=== PATIENT | male | born 1970 | race Caucasian/White ===

== ENCOUNTER 2019-01-23 15:08 | Inpatient (IN) | payer MEDICAID ==
[~2019-01-23] VITALS: Ht 177.8 cm; Wt 70.6 kg
[2019-01-23] MEDS ORDERED: heparin 25,000 UNIT/250ml bag 250 ML IV SCH ×2 (15:14→15:20)
[2019-01-23 15:28] LABS: BASOPHILS # (AUTO) 0.1 X10'3 (0-0.2); BASOPHILS % (AUTO) 0.8 % (0-1); EOSINOPHILS # (AUTO) 0.1 X10'3 (0-0.9); EOSINOPHILS % (AUTO) 0.4 % (0-6); HEMATOCRIT 46.6 % (42.0-52.0); LYMPHOCYTES # (AUTO) 1.8 X10'3 (1.1-4.8); LYMPHOCYTES % (AUTO) 13.3 % (21-51); MEAN CORPUSCULAR HEMOGLOBIN 32.5 PG (27.0-31.0); MEAN CORPUSCULAR HGB CONC 34.3 g/dL (33.0-36.5); MEAN CORPUSCULAR VOLUME 94.7 FL (78-98); MEAN PLATELET VOLUME 7.5 FL (7.4-10.4); MONOCYTES # (AUTO) 0.8 X10'3 (0-0.9); MONOCYTES % (AUTO) 5.9 % (2-12); NEUTROPHILS # (AUTO) 10.5 X10'3 (1.8-7.7); NEUTROPHILS % (AUTO) 79.6 % (42-75); PLATELET COUNT 242 X10'3 (140-440); RED BLOOD COUNT 4.92 X10'6 (4.70-6.10); RED CELL DISTRIBUTION WIDTH 13.6 % (11.5-14.5); WHITE BLOOD COUNT 13.2 X10'3 (4.5-11.0)
[2019-01-23] MEDS ORDERED: acetaminophen 325mg tablet PO PRN ×2 (15:30)
[2019-01-23] MEDS ORDERED: magnesium 4gm in 100ml NS 100 ML IV PRN (15:30)
[2019-01-23] MEDS ORDERED: magnesium hydroxide 30ml (MOM) UD suspension PO PRN (15:30)
[2019-01-23] MEDS ORDERED: potassium Cl 20 mEq SR tablet PO PRN ×2 (15:30)
[2019-01-23] MEDS ORDERED: magnesium Cl slow-release 64mg tablet PO PRN (15:30)
[2019-01-23] MEDS ORDERED: morphine 4 MG/ML inj SYRINge IV PRN ×3 (15:30→19:30)
[2019-01-23] MEDS: K, MAG and/or Phos replacement - Verify level? MC SCH (15:30)
[2019-01-23] MEDS ORDERED: magnesium 2GM in 50ml NS 50 ML IV PRN (15:30)
[2019-01-23] MEDS ORDERED: ondansetron/PF 4mg/2ml inj IV PRN (15:30)
[2019-01-23] MEDS ORDERED: GABA600T13 PO (15:35)
[2019-01-23] MEDS ORDERED: METH500T6 PO (15:35)
[2019-01-23] MEDS ORDERED: CELE-193 PO (15:35)
[2019-01-23 15:42] LABS: ALANINE AMINOTRANSFERASE 24 U/L (12-78); ALBUMIN 3.7 G/DL (3.4-5.0); ALBUMIN/GLOBULIN RATIO 1.2 (1.1-1.5); ALKALINE PHOSPHATASE 77 IU/L (46-116); ANION GAP 10 (8-16); ASPARTATE AMINO TRANSFERASE 135 U/L (10-37); BILIRUBIN,TOTAL 0.3 MG/DL (0.1-1.0); BLOOD UREA NITROGEN 19 MG/DL (7-18); CALCIUM 8.9 MG/DL (8.5-10.1); CHLORIDE 103 MMOL/L (99-107); CREATININE 1.12 MG/DL (0.60-1.10); GLUCOSE 115 MG/DL (70-104); POTASSIUM 3.6 MMOL/L (3.5-5.1); SODIUM 139 MMOL/L (135-145); TOTAL CARBON DIOXIDE 25.7 MMOL/L (24-32); TOTAL PROTEIN 6.9 G/DL (6.4-8.2); eGFR 69 ML/MIN
[2019-01-23] MEDS ORDERED: heparin 10,000 units/1 ML INJ IV PRN (15:50)
[2019-01-23 15:55] LABS: PARTIAL THROMBOPLASTIN TIME 100 SECONDS (22-32)
[2019-01-23] MEDS: pantoprazole 40 MG vial IV SCH (15:55)
[2019-01-23] MEDS: morphine 2 MG/ML inj. syringe IV PRN (15:56)
[2019-01-23] MEDS ORDERED: nitroGLYCERIN-Tridil 50MG/D5W 250 ML IV PRN ×2 (16:20→16:25)
[2019-01-23] MEDS: gabapentin 300mg capsule PO SCH (16:30)
[2019-01-23] MEDS ORDERED: diphenhydrAMINE 50 mg/ml inj IV ONE (16:40)
[2019-01-23] MEDS ORDERED: LIDOcaine 1% (10mg/ml)w/preservative injection 20ml MDV ONE (17:04)
[2019-01-23] MEDS ORDERED: midazolam 2 mg/2 ml injection ONE (17:04)
[2019-01-23] MEDS ORDERED: iohexol 350MG/ML 100ml bottle IV ONE ×2 (17:04→18:04)
[2019-01-23] MEDS ORDERED: iohexol 350 MG/ML 50ML vial IV ONE (17:04)
[2019-01-23] MEDS ORDERED: fentaNYL/PF 50MCG/1 ML 2ML syringe ONE (17:04)
[2019-01-23] MEDS ORDERED: tirofiban 5mg in NS 100mL 100 ML IV ONE (17:49)
[2019-01-23] MEDS ORDERED: heparin 1,000unit/ml 10ml vial 10 ML ONE (18:01)
[2019-01-23] MEDS ORDERED: clopidogrel 300mg tablet ONE (18:48)
[2019-01-23 19:00] VITALS: BP 118/65
--- NOTE | 2019-01-23 19:00 | NUR ---
Received patient in room CICU 2009 from research laboratory specialist. I have received report from ASH Aguayo and had the opportunity to ask questions and assume patient care.
[2019-01-23] MEDS ORDERED: normal saline 1000ml 1,000 ML IV SCH (19:20)
[2019-01-23] MEDS ORDERED: OXAZEpam 15mg capsule PO PRN (19:30)
[2019-01-23] MEDS ORDERED: morphine 10mg/ml inj. IV PRN (19:30)
[2019-01-23] MEDS ORDERED: proCHLORperazine 10 MG/2 ml inj IV PRN (19:30)
[2019-01-23 20:00] VITALS: BP 119/72
[2019-01-23] MEDS ORDERED: carVEDilol 3.125mg tablet PO SCH (20:00)
[2019-01-23] MEDS: docusate sod 100mg capsule PO SCH (20:16)
[2019-01-23] MEDS: cyclobenzaprine 10mg tablet PO SCH (20:16)
[2019-01-23] MEDS: tirofiban 5mg in NS 100mL 100 ML IV SCH (20:20)
[2019-01-23] MEDS ORDERED: atropine 0.1mg/ml 10ml syringe ONE (20:43)
--- NOTE | 2019-01-23 20:45 | NUR ---
March, OBJECTIVE C DEVELOPER notified of patient's low HR, dropping as low as 36. Patient is asymptomatic, blood pressure is maintaining, and rhythm is containing p waves. OBJECTIVE C DEVELOPER did not give new orders but suggested that the locomotive switch operator be updated on the patient's condition. Will notify the locomotive switch operator and continue monitoring patient.
--- NOTE | 2019-01-23 20:55 | NUR ---
MD Alfredo notified of patient's low heart rate, dropping as low as 32. Patient is asymptomatic, blood pressure is maintaining and rhythm still contains p waves. No new orders at this time, MD desires that we continue to monitor at this time. Will notify MD if any changes in patient's response to low HR.
[2019-01-23 21:00] VITALS: BP 130/77
[2019-01-23 22:00] VITALS: BP 130/72
[2019-01-23 23:00] VITALS: BP 110/64
[2019-01-24] VITALS (24 sets, daily range): BP systolic 101–133; BP diastolic 48–85
[2019-01-24] MEDS: tirofiban 5mg in NS 100mL 100 ML IV SCH (03:49)
[2019-01-24 04:49] LABS: BASOPHILS # (AUTO) 0.1 X10'3 (0-0.2); BASOPHILS % (AUTO) 0.6 % (0-1); EOSINOPHILS # (AUTO) 0.1 X10'3 (0-0.9); EOSINOPHILS % (AUTO) 0.7 % (0-6); HEMATOCRIT 41.5 % (42.0-52.0); HEMOGLOBIN 14.1 g/dl (14.0-17.9); LYMPHOCYTES # (AUTO) 2.1 X10'3 (1.1-4.8); LYMPHOCYTES % (AUTO) 22.4 % (21-51); MEAN CORPUSCULAR HEMOGLOBIN 32.9 PG (27.0-31.0); MEAN CORPUSCULAR VOLUME 96.7 FL (78-98); MEAN PLATELET VOLUME 7.9 FL (7.4-10.4); MONOCYTES # (AUTO) 0.9 X10'3 (0-0.9); MONOCYTES % (AUTO) 9.9 % (2-12); NEUTROPHILS # (AUTO) 6.3 X10'3 (1.8-7.7); NEUTROPHILS % (AUTO) 66.4 % (42-75); PLATELET COUNT 205 X10'3 (140-440); RED CELL DISTRIBUTION WIDTH 13.5 % (11.5-14.5); WHITE BLOOD COUNT 9.5 X10'3 (4.5-11.0)
[2019-01-24 05:01] LABS: PARTIAL THROMBOPLASTIN TIME 29 SECONDS (22-32)
[2019-01-24 05:33] LABS: ALANINE AMINOTRANSFERASE 51 U/L (12-78); ALBUMIN 3.1 G/DL (3.4-5.0); ALBUMIN/GLOBULIN RATIO 1.1 (1.1-1.5); ALKALINE PHOSPHATASE 65 IU/L (46-116); ANION GAP 10 (8-16); ASPARTATE AMINO TRANSFERASE 358 U/L (10-37); BILIRUBIN,TOTAL 0.4 MG/DL (0.1-1.0); BLOOD UREA NITROGEN 15 MG/DL (7-18); BUN/CREATININE RATIO 14.7 (5.4-32.0); CALCIUM 8.5 MG/DL (8.5-10.1); CHLORIDE 106 MMOL/L (99-107); CREATININE 1.02 MG/DL (0.60-1.10); GLUCOSE 96 MG/DL (70-104); MAGNESIUM 1.9 MG/DL (1.5-2.4); POTASSIUM 3.9 MMOL/L (3.5-5.1); SODIUM 138 MMOL/L (135-145); TOTAL CARBON DIOXIDE 21.9 MMOL/L (24-32); TOTAL PROTEIN 5.9 G/DL (6.4-8.2); eGFR 77 ML/MIN
--- NOTE | 2019-01-24 06:27 | NUR ---
Problems reprioritized. Patient report given, questions answered & plan of care reviewed with ASH Bull.
[2019-01-24] MEDS: cyclobenzaprine 10mg tablet PO SCH ×3 (07:46→20:31)
[2019-01-24] MEDS: pantoprazole 40 MG vial IV SCH (07:46)
[2019-01-24] MEDS: gabapentin 300mg capsule PO SCH ×3 (07:46→20:31)
[2019-01-24] MEDS: aspirin 81mg tab.chew PO SCH (07:46)
[2019-01-24] MEDS: docusate sod 100mg capsule PO SCH ×2 (07:46→20:31)
[2019-01-24] MEDS: morphine 2 MG/ML inj. syringe IV PRN ×2 (07:47→13:04)
[2019-01-24] MEDS: atorvastatin 10mg tablet PO SCH (07:47)
[2019-01-24] MEDS: lisinopril 2.5mg tablet PO SCH (07:47)
[2019-01-24] MEDS: K, MAG and/or Phos replacement - Verify level? MC SCH (08:22)
--- NOTE | 2019-01-24 12:41 | NUR ---
Staff Reporter RN at bedside to pull sheath
--- NOTE | 2019-01-24 18:00 | NUR ---
Patient in room CICU 2009. I have received report from Ml ALEMAN and had the opportunity to ask questions and assume patient care.
[2019-01-24] MEDS ORDERED: clopidogrel 75mg tablet PO ONE (22:10)
[2019-01-25] VITALS (17 sets, daily range): BP systolic 72–125; BP diastolic 42–86
[2019-01-25 05:08] LABS: BASOPHILS % (AUTO) 0.4 % (0-1); EOSINOPHILS # (AUTO) 0.1 X10'3 (0-0.9); HEMATOCRIT 47.5 % (42.0-52.0); HEMOGLOBIN 16.3 g/dl (14.0-17.9); LYMPHOCYTES # (AUTO) 2.5 X10'3 (1.1-4.8); LYMPHOCYTES % (AUTO) 23.7 % (21-51); MEAN CORPUSCULAR HEMOGLOBIN 32.8 PG (27.0-31.0); MEAN CORPUSCULAR HGB CONC 34.2 g/dL (33.0-36.5); MEAN PLATELET VOLUME 7.9 FL (7.4-10.4); MONOCYTES # (AUTO) 1.2 X10'3 (0-0.9); MONOCYTES % (AUTO) 11.3 % (2-12); NEUTROPHILS # (AUTO) 6.7 X10'3 (1.8-7.7); NEUTROPHILS % (AUTO) 63.6 % (42-75); PLATELET COUNT 226 X10'3 (140-440); RED BLOOD COUNT 4.95 X10'6 (4.70-6.10); RED CELL DISTRIBUTION WIDTH 13.6 % (11.5-14.5); WHITE BLOOD COUNT 10.5 X10'3 (4.5-11.0)
[2019-01-25 05:43] LABS: ALANINE AMINOTRANSFERASE 45 U/L (12-78); ALBUMIN 3.5 G/DL (3.4-5.0); ALBUMIN/GLOBULIN RATIO 0.9 (1.1-1.5); ALKALINE PHOSPHATASE 74 IU/L (46-116); ANION GAP 12 (8-16); ASPARTATE AMINO TRANSFERASE 177 U/L (10-37); BILIRUBIN,TOTAL 0.7 MG/DL (0.1-1.0); BLOOD UREA NITROGEN 12 MG/DL (7-18); BUN/CREATININE RATIO 10.8 (5.4-32.0); CALCIUM 8.8 MG/DL (8.5-10.1); CHLORIDE 102 MMOL/L (99-107); CREATININE 1.11 MG/DL (0.60-1.10); GLUCOSE 90 MG/DL (70-104); MAGNESIUM 1.8 MG/DL (1.5-2.4); PHOSPHORUS 2.8 MG/DL (2.3-4.5); POTASSIUM 3.8 MMOL/L (3.5-5.1); SODIUM 137 MMOL/L (135-145); TOTAL CARBON DIOXIDE 23.4 MMOL/L (24-32); TOTAL PROTEIN 7.2 G/DL (6.4-8.2); eGFR 70 ML/MIN
--- NOTE | 2019-01-25 06:06 | NUR ---
I have reviewed and agree with all interventions, assessments performed and documented by ASH Buitrago.
--- NOTE | 2019-01-25 06:27 | NUR ---
Problems reprioritized. Patient report given, questions answered & plan of care reviewed with Elisabet ALEMAN.
[2019-01-25] MEDS: cyclobenzaprine 10mg tablet PO SCH ×3 (07:38→20:10)
[2019-01-25] MEDS: docusate sod 100mg capsule PO SCH ×2 (07:38→20:00)
[2019-01-25] MEDS: aspirin 81mg tab.chew PO SCH (07:38)
[2019-01-25] MEDS: clopidogrel 75mg tablet PO SCH (07:38)
[2019-01-25] MEDS: pantoprazole 40mg Tablet.DR PO SCH (07:38)
[2019-01-25] MEDS: atorvastatin 10mg tablet PO SCH (07:41)
[2019-01-25] MEDS: lisinopril 2.5mg tablet PO SCH (07:41)
[2019-01-25] MEDS: gabapentin 300mg capsule PO SCH (08:00)
[2019-01-25] MEDS: K, MAG and/or Phos replacement - Verify level? MC SCH (08:02)
[2019-01-25] MEDS ORDERED: GABA-532 PO (08:04)
--- NOTE | 2019-01-25 08:04 | NUR ---
pt states he has been trying to wean himself off of Gabapentin. States he's supposed to take 300mg TID but now takes 300mg at bedtime. HYDRAULIC OPERATOR med list adjusted to reflect the change.
--- NOTE | 2019-01-25 16:32 | NUR ---
Received report from Pro Pantoja RN in CICU for transfer of patient to PCU. Patient was transferred by wheelchair, able to ambulate self to bed. Patient oriented to room, call light within reach. 2 RN Skin check performed. All needs met at this time. Vitals: BP 134/88, HR 88, R 18, O2 97 Room air, Temp 98.6F
--- NOTE | 2019-01-25 18:12 | NUR ---
Problems reprioritized. Patient report given, questions answered & plan of care reviewed with Brina ALEMAN. All patients needs met at this time.
--- NOTE | 2019-01-25 18:13 | NUR ---
Patient in room PCU 3023. I have received report from Caroline ALEMAN and had the opportunity to ask questions and assume patient care.
--- NOTE | 2019-01-25 19:44 | NUR ---
pt EKG showed changes in the T-wave, 12kL EKG done and left a message to the answering service to Dr. Fuentes. Pt reports no appetite, no chest pain, and feeling agitated, will continue to monitor
[2019-01-25] MEDS ORDERED: gabapentin 300mg capsule PO SCH (21:00)
--- NOTE | 2019-01-25 21:39 | NUR ---
Dr. Fuentes called back, and said dont worry about the EKG with the innverted T wave. He thinks its normal and he did not want to call him again
[2019-01-26 02:00] VITALS: BP_SYST 120; BP_SYST 123; BP_DIAS 72; BP_DIAS 79
[2019-01-26 05:04] LABS: BASOPHILS # (AUTO) 0.1 X10'3 (0-0.2); BASOPHILS % (AUTO) 0.6 % (0-1); EOSINOPHILS # (AUTO) 0.1 X10'3 (0-0.9); EOSINOPHILS % (AUTO) 1.3 % (0-6); HEMATOCRIT 47.8 % (42.0-52.0); HEMOGLOBIN 16.2 g/dl (14.0-17.9); LYMPHOCYTES # (AUTO) 2.3 X10'3 (1.1-4.8); LYMPHOCYTES % (AUTO) 25.3 % (21-51); MEAN CORPUSCULAR HEMOGLOBIN 32.7 PG (27.0-31.0); MEAN CORPUSCULAR HGB CONC 33.9 g/dL (33.0-36.5); MEAN CORPUSCULAR VOLUME 96.2 FL (78-98); MEAN PLATELET VOLUME 7.9 FL (7.4-10.4); MONOCYTES # (AUTO) 0.9 X10'3 (0-0.9); MONOCYTES % (AUTO) 10.6 % (2-12); NEUTROPHILS # (AUTO) 5.5 X10'3 (1.8-7.7); NEUTROPHILS % (AUTO) 62.2 % (42-75); PLATELET COUNT 227 X10'3 (140-440); RED BLOOD COUNT 4.97 X10'6 (4.70-6.10); RED CELL DISTRIBUTION WIDTH 13.6 % (11.5-14.5); WHITE BLOOD COUNT 8.9 X10'3 (4.5-11.0)
[2019-01-26 05:25] LABS: ALANINE AMINOTRANSFERASE 36 U/L (12-78); ALBUMIN 3.4 G/DL (3.4-5.0); ALBUMIN/GLOBULIN RATIO 0.9 (1.1-1.5); ALKALINE PHOSPHATASE 73 IU/L (46-116); ANION GAP 10 (8-16); ASPARTATE AMINO TRANSFERASE 81 U/L (10-37); BILIRUBIN,TOTAL 0.7 MG/DL (0.1-1.0); BLOOD UREA NITROGEN 16 MG/DL (7-18); BUN/CREATININE RATIO 14.4 (5.4-32.0); CHLORIDE 102 MMOL/L (99-107); CREATININE 1.11 MG/DL (0.60-1.10); GLUCOSE 76 MG/DL (70-104); MAGNESIUM 1.9 MG/DL (1.5-2.4); PHOSPHORUS 3.2 MG/DL (2.3-4.5); POTASSIUM 3.8 MMOL/L (3.5-5.1); SODIUM 138 MMOL/L (135-145); TOTAL CARBON DIOXIDE 26.2 MMOL/L (24-32); TOTAL PROTEIN 7.4 G/DL (6.4-8.2); eGFR 70 ML/MIN
[2019-01-26 06:00] VITALS: BP 131/84
--- NOTE | 2019-01-26 06:33 | NUR ---
Problems reprioritized. Patient report given, questions answered & plan of care reviewed with Fatemeh ALEMAN.
--- NOTE | 2019-01-26 06:34 | NUR ---
Patient in room PCU 3023. I have received report from Brina ALEMAN and had the opportunity to ask questions and assume patient care.
[2019-01-26] MEDS: cyclobenzaprine 10mg tablet PO SCH (07:43)
[2019-01-26] MEDS: clopidogrel 75mg tablet PO SCH (07:43)
[2019-01-26] MEDS: aspirin 81mg tab.chew PO SCH (07:43)
[2019-01-26] MEDS: atorvastatin 10mg tablet PO SCH (07:43)
[2019-01-26] MEDS: pantoprazole 40mg Tablet.DR PO SCH (07:43)
[2019-01-26] MEDS: docusate sod 100mg capsule PO SCH (07:45)
[2019-01-26] MEDS ORDERED: lisinopril 2.5mg tablet PO SCH (08:00)
[2019-01-26] MEDS: K, MAG and/or Phos replacement - Verify level? MC SCH (08:00)
[2019-01-26] MEDS ORDERED: ATOR10TA PO (09:17)
[2019-01-26] MEDS ORDERED: CLOP75TA35 PO (09:17)
[2019-01-26] MEDS ORDERED: LISI2.5T2 PO (09:17)
[2019-01-26] MEDS ORDERED: PANT40TA4 PO (09:17)
[2019-01-26] MEDS ORDERED: ASPI-1265 PO (09:17)
--- NOTE | 2019-01-26 10:20 | NUR ---
Spoke to Dr. Fuentes, he states the patient is good to go home by his standpoint. He does not want him to go home on a beta nora. Will inform Dr. Penny.
[2019-01-26 11:00] VITALS: BP 134/82
[2019-01-26] MEDS ORDERED: METO-395 PO (11:09)
--- NOTE | 2019-01-26 12:52 | NUR ---
Patient stable for discharge per MD orders. All discharge instructions reviewed with patient and all questions answered. New prescriptions called into patients preferred pharmacy. PIV & telemetry monitored discontinued. Belongings collected and sent with patient. Patient left by foot and walked out of hospital. Patient was educated on patient safety and primary RN explained that it would be best to wait for his ride to arrive. Patient stated he was not willing to wait any longer and wanted to leave despite having his ride here. Patient spoke with earlier about letting his friend know that he is being discharged and to pick him up at the gas station. Patient left and stated he would be waiting for his ride at the gas station across from the hospital as this is where his ride will stop for gas. Patient's had called after he left and informed primary RN that the friend is on his way to seed cone picker patient. Primary RN informed that patient has left hospital and waiting for his ride at the gas station across from hospital. stated she will inform friend that patient is waiting at gas station.
--- NOTE | 2019-01-26 14:06 | NUR ---
Margarita documentation: I have reviewed and agree with all interventions, assessments performed and documented by Rubi ALEMAN. Addendum: 01/26/19 at 1407 by Fatemeh Giles RN [facility] Medication Administration: For this medication-pass time frame, all medication were reviewed, dispensed, administered and documented per hospital policy by Rubi ALEMAN.
[2019-01-27] MEDS ORDERED: metoprolol succinate 25mg (24-HOUR) SR. Tablet PO SCH (08:00)
== END 2019-01-26 12:52 | disposition home or self-care (01) | DRG 174 ==
LOC: ER 15:09 → ED HOLD 15:26 → CICU 2S 20:33 → PCU 3S 01-25 15:15
PROVIDERS: ADMIT Internal Medicine Critical Care Medicine; ATTEND Family Medicine
PROC: 027034Z Dilation of Coronary Artery, One Artery with Drug-eluting Intraluminal Device, Percutaneous Approach (ICD-10-PCS; principal; 2019-01-23)
PROC: 4A023N7 Measurement of Cardiac Sampling and Pressure, Left Heart, Percutaneous Approach (ICD-10-PCS; 2019-01-23)
PROC: B2111ZZ Fluoroscopy of Multiple Coronary Arteries using Low Osmolar Contrast (ICD-10-PCS; 2019-01-23)
PROC: B2151ZZ Fluoroscopy of Left Heart using Low Osmolar Contrast (ICD-10-PCS; 2019-01-23)
PROC: B41F1ZZ Fluoroscopy of Right Lower Extremity Arteries using Low Osmolar Contrast (ICD-10-PCS; 2019-01-23)
PROC: B41C1ZZ Fluoroscopy of Pelvic Arteries using Low Osmolar Contrast (ICD-10-PCS; 2019-01-23)
PROC: B31N1ZZ Fluoroscopy of Other Upper Arteries using Low Osmolar Contrast (ICD-10-PCS; 2019-01-23)
DX: I21.09 ST elevation (STEMI) myocardial infarction involving other coronary artery of anterior wall (principal); G62.9 Polyneuropathy, unspecified; D64.9 Anemia, unspecified; G89.4 Chronic pain syndrome; E78.5 Hyperlipidemia, unspecified; F12.10 Cannabis abuse, uncomplicated; F17.210 Nicotine dependence, cigarettes, uncomplicated; F41.9 Anxiety disorder, unspecified; I10 Essential (primary) hypertension; M54.9 Dorsalgia, unspecified; R00.1 Bradycardia, unspecified; J44.9 Chronic obstructive pulmonary disease, unspecified; Z79.82 Long term (current) use of aspirin; Z80.1 Family history of malignant neoplasm of trachea, bronchus and lung; Z82.3 Family history of stroke; Z82.49 Family history of ischemic heart disease and other diseases of the circulatory system; Z63.0 Problems in relationship with spouse or partner; Z71.6 Tobacco abuse counseling; Z79.899 Other long term (current) drug therapy
CPT/HCPCS: 36415; 71045; 80053; 83735; 84100; 84484; 85025; 85610; 85730; 87081; 93005; 93306; 93459; 94760; 97161; 97530; 99152; 99153; 99291; A4620; A5120; A6258; A6449; C1760; C1769; C1874; C9113; C9606; G0378; J0461; J1200; J1644; J2001; J2250; J2270; J3010; J3246; J7030; J7040; Q9967